=== PATIENT | female | born 1930 | race Two or more races ===

== ENCOUNTER 2019-10-27 23:57 | Inpatient (IN) | payer OTHER ==
[~2019-10-27] VITALS: Ht 162.6 cm; Wt 45.5 kg
[~2019-10-27 23:57] MED LIST: ERGO1CAP6 PO; LISI-648 PO
[2019-10-28] VITALS (12 sets, daily range): BP systolic 125–165; BP diastolic 52–74
--- NOTE | 2019-10-28 00:50 | NUR ---
Direct Admit Note SEVENASUNCION admitted to Telemetry/MS unit as a direct admit for [facility] ([place] Patient oriented to Carlos Enrique Cook, primary RN, unit, room, bed, and unit policies regarding patient care and visiting hours. Patient is currently A/Ox2. Patient is restless and continues to try to get out of bed. Abreu has been [place] prior to [place] [facility] Patient weighed by bedscale and encouraged to call if they need something. All questions and concerns addressed, patient verbalized understanding. MD notified of patients arrival and admit orders received.
[2019-10-28] MEDS ORDERED: PANTOPRAZOLE 40 MG/10 ML VIAL INJ IV ONE (01:15)
--- NOTE | 2019-10-28 01:45 | NUR ---
Patient is restless and frequently tries to get out of bed. Patient also tries to pull out her Abreu. Requested sitter for the patient. Charge nurse notified.
--- NOTE | 2019-10-28 02:20 | NUR ---
Sitter is bedside with the patient. Patient continues to be restless.
[2019-10-28 03:06] LABS: Basophils # (auto) 0 10 ^3/uL (0-0.2); Eosinophils # (auto) 0 10 ^3/uL (0-0.8); Eosinophils % (auto) 0.1 % (0.0-7.0); Lymphocytes # (auto) 0.7 10 ^3/uL (0.4-5.4); Monocytes # (auto) 0.5 10 ^3/uL (0-1.3); Neutrophils # (auto) 3.8 10 ^3/uL (1.6-8.6)
[2019-10-28 03:08] LABS: Basophils % (auto) 0.5 % (0.0-2.0); Hematocrit 21.7 % (36.0-46.0); Lymphocytes % (auto) 14.8 % (10.0-50.0); Mean Corpuscular Hemoglobin 26.4 pg (28.0-32.0); Mean Corpuscular Hgb Conc. 32.1 g/dL (32.0-36.0); Mean Corpuscular Volume 82.3 fL (80.0-100.0); Monocytes % (auto) 10.4 % (0.0-12.0); Neutrophils % (auto) 74.2 % (37.0-80.0); Platelet Count (auto) 237 10^3/uL (140-450); Red Blood Cells 2.64 10^6/uL (4.0-5.20); Red Cell Distribution Width 18.2 % (11.8-14.3); White Blood Cell 5.1 10^3/uL (4.4-10.8)
--- NOTE | 2019-10-28 03:10 | NUR ---
CRITICAL LAB Critical lab for low hemoglobin of 7.0 has been received. Hospitalist has been paged.
--- NOTE | 2019-10-28 03:15 | NUR ---
HOSPITALIST [facility] Hospitalist Manjinder has been notified about the patient's 7.0 Hemoglobin. No new orders have been received.
[2019-10-28 03:21] LABS: INR 0.98 (0.9-1.15); Partial Thromboplastin Time 25.8 sec (23.64-32.05)
[2019-10-28 03:23] LABS: Calcium 8.8 mg/dL (8.5-10.1); Potassium 3.8 mmol/L (3.5-5.1)
[2019-10-28 03:28] LABS: Bilirubin, Total 0.5 mg/dL (0.2-1.0); Total Protein 7.3 g/dL (6.4-8.2)
[2019-10-28 03:40] LABS: Urine Bacteria FEW /hpf (None Seen); Urine Blood Negative /uL (Negative); Urine WBC 2 /hpf (0 - 5)
[2019-10-28] MEDS ORDERED: MORPHINE SULF INJ 2 MG/ML SYRINGE 1ML IV PRN (03:45)
[2019-10-28] MEDS ORDERED: ONDANSETRON HCL 4 MG/2 ML VIAL IV PRN (03:45)
[2019-10-28] MEDS: PANTOPRAZOLE 40mg/50ML NS AE 50 ML IV SCH ×2 (03:45→09:19)
[2019-10-28] MEDS ORDERED: NITROGLYCERIN 0.4 MG SL TAB SL PRN (03:45)
[2019-10-28] MEDS: D5W/SOD CHLO 0.9% 1,000 ML IV SCH ×2 (03:45→17:05)
[2019-10-28] MEDS ORDERED: GOLYTELY 4L KIT PO ONE (10:00)
[2019-10-28 10:22] LABS: Hematocrit 20.6 % (36.0-46.0)
[2019-10-28 10:25] LABS: Hemoglobin 6.6 g/dL (12.2-16.2)
--- NOTE | 2019-10-28 10:30 | NUR ---
CALLED Heri KESSLER REGARDING CRITICAL LAB OF 6.6. INFORMED THERE IS ALREADY AN ORDER PRESENT FOR 1 UNIT OF BLOOD TO TRANSFUSE PER Heri PALMA.
[2019-10-28] MEDS: cefTRIAXone 1GM/50ML D5W 50 ML IV SCH (10:39)
--- NOTE | 2019-10-28 10:58 | NUR ---
IV insertion IV access obtained, via clean sterile technique by inserting 20 gauge catheter at R WRIST after 1 attempt(s). IV secured properly. No trauma to site. Patient tolerated well. NOTE:
--- NOTE | 2019-10-28 11:10 | NUR ---
SPOKE WITH Heri KESSLER INFORMED OF PATIENT BLOOD REQUIRING 3 HOURS TO ARRIVE TO HOSPITAL. STATED TO ORDER ANOTHER UNIT OF BLOOD TO TRANSFUSE.
--- NOTE | 2019-10-28 11:15 | NUR ---
PER BLOOD BANK, BLOOD WILL NOT BE HERE FOR 3 HOURS DUE TO SPECIAL ORDER FROM [facility].
--- NOTE | 2019-10-28 13:20 | NUR ---
LATE ENTRY: RECIEVED TELEPHONE CONSENT FROM SON DAVI WITH NURSE KAREN WITNESS.
--- NOTE | 2019-10-28 14:17 | NUR ---
CALLED BLOOD BANK. AWAITING BLOOD.
--- NOTE | 2019-10-28 19:07 | NUR ---
PAGED NURSING PROGRAM COORDINATOR HOSPITALIST REGARDING PATIENT FOUND IN ROOM WITH HANDS COVERED IN BLOOD. PATIENTS HEART RATE IN THE 170'S BLOOD PRESSURE 133/74, 02 SATURATIONS AT 98%. PER Heri GARCIA GIVE 1L OF LACTATED RINGER BOLUS. WILL FOLLOW THROUGH.
[2019-10-28] MEDS ORDERED: LACTATED RINGER'S 1,000 ML IV ONE (19:15)
[2019-10-29] VITALS (7 sets, daily range): BP systolic 100–139; BP diastolic 47–78
--- NOTE | 2019-10-29 00:45 | NUR ---
NG TUBE ATTEMPT Attempted to place an NG tube but was unable to advance. Charge nurse notified. Will continue to encourage the patient to drink the Golytely.
--- NOTE | 2019-10-29 04:59 | NUR ---
NG TUBE ATTEMPT Attempted to place NG tube in the patient but was unsuccessful. The patient was uncooperative and continued to move while advancing the tube. Patient pulled out tube prior to completion of tube advancement.
[2019-10-29 06:22] LABS: Basophils # (auto) 0 10 ^3/uL (0-0.2); Basophils % (auto) 0.4 % (0.0-2.0); Eosinophils # (auto) 0 10 ^3/uL (0-0.8); Eosinophils % (auto) 0.3 % (0.0-7.0); Hematocrit 33.5 % (36.0-46.0); Hemoglobin 11.2 g/dL (12.2-16.2); Lymphocytes # (auto) 0.6 10 ^3/uL (0.4-5.4); Lymphocytes % (auto) 9.6 % (10.0-50.0); Mean Corpuscular Hemoglobin 27.8 pg (28.0-32.0); Mean Corpuscular Hgb Conc. 33.4 g/dL (32.0-36.0); Mean Corpuscular Volume 83.3 fL (80.0-100.0); Monocytes # (auto) 0.5 10 ^3/uL (0-1.3); Monocytes % (auto) 8.7 % (0.0-12.0); Neutrophils # (auto) 4.7 10 ^3/uL (1.6-8.6); Nucleated Red Blood Cells % 0.1 %; Platelet Count (auto) 199 10^3/uL (140-450); Red Blood Cells 4.03 10^6/uL (4.0-5.20); Red Cell Distribution Width 16.7 % (11.8-14.3); White Blood Cell 5.8 10^3/uL (4.4-10.8)
[2019-10-29] MEDS: D5W/SOD CHLO 0.9% 1,000 ML IV SCH ×2 (06:25→15:13)
--- NOTE | 2019-10-29 06:38 | NUR ---
Patient drank up approximately 2/3rd of the golytely. Attempted to place NT tube but was unsuccessful. The patient is passing clear red/dark brown watery fluid. No solid stool present.
[2019-10-29 06:42] LABS: BUN/Creatinine Ratio 9.7
[2019-10-29] MEDS ORDERED: diphenhdrAMINE HCL 50 MG/1 ML VL ONE (08:47)
[2019-10-29] MEDS ORDERED: SODIUM CHLORIDE LOCK 10 ML ONE (08:47)
--- NOTE | 2019-10-29 10:00 | NUR ---
INFORMED DR PALMA THAT PATIENT WAS UNABLE TO DRINK ALL OF GOLYTELY AND NOC NURSE UNABLE TO PLACE NG TUBE. ORDERS RECEIVED.
--- NOTE | 2019-10-29 10:23 | NUR ---
DR Brad KESSLER BEDSIDE WITH PATIENT
[2019-10-29] MEDS: cefTRIAXone 1GM/50ML D5W 50 ML IV SCH (10:26)
--- NOTE | 2019-10-29 11:15 | NUR ---
INFORMED PREOP THAT PATIENT IS REFUSING TAP WATER ENEMAS. PREOP SAID TO BRING HER DOWN ANYWAY
--- NOTE | 2019-10-29 11:20 | NUR ---
PATIENT OFF FLOOR FOR COLONOSCOPY
[2019-10-29] MEDS: fentaNYL CITRATE 100 MCG/2 ML VL ONE ×3 (12:04→12:20)
[2019-10-29] MEDS: MIDAZOLAM HCL 5 MG/ML-1ML VIAL ONE ×2 (12:04→12:11)
--- NOTE | 2019-10-29 13:25 | NUR ---
PATIENT BACK TO ROOM FROM COLONOSCOPY. VS 105/71, 100%, 17, 49, 98.3. NO COMPLAINTS OF PAIN OR DISCOMFORT. WILL CONTINUE TO MONITOR Q1H AND PRN. SITTER BEDSIDE
--- NOTE | 2019-10-29 16:45 | NUR ---
PATIENT PULLED OUT IV. PATIENT REFUSING NEW PLACEMENT OF IV AT THIS TIME.
--- NOTE | 2019-10-29 19:47 | NUR ---
RECEIVED REPORT FROM DAY RN POC REVIEWED
--- NOTE | 2019-10-29 22:00 | NUR ---
PT ALERT WITH PERIODS OF CONFUSION, WILL ATTEMPT IV, PT EARLIER PULLED OUT HER IV AND REFUSED THE DAY NURSE TO RESTART IV
--- NOTE | 2019-10-29 23:15 | NUR ---
PT REFUSED TO HAVE IV RESTARTED, REORIENTED PT TO POC, PT HAS PERIODS OF CONFUSION, SITTER AT BEDSIDE FOR PTS SAFETY
--- NOTE | 2019-10-30 05:32 | NUR ---
PT CONTINUE TO REFUSE TO HAVE IV PLACED, REORIENTED PT TO POC
[2019-10-30 05:54] VITALS: BP 128/61
--- NOTE | 2019-10-30 05:55 | NUR ---
PTS TEMP 99.2, COOLING MEASURES INITIATED
--- NOTE | 2019-10-30 06:49 | NUR ---
REPORT GIVEN TO AM NURSE POC REVIEWED
[2019-10-30] MEDS: cefTRIAXone 1GM/50ML D5W 50 ML IV SCH (09:00)
[2019-10-30] MEDS: D5W/SOD CHLO 0.9% 1,000 ML IV SCH (09:05)
[2019-10-30 09:24] LABS: Hematocrit 31.7 % (36.0-46.0); Hemoglobin 10.2 g/dL (12.2-16.2)
[2019-10-30] MEDS ORDERED: POTASSIUM CHL 20 Meq TABLET PO ONE (10:00)
--- NOTE | 2019-10-30 12:52 | NUR ---
PCP unknown Unable to find any PCP listed for MD. This nurse called her family and they were not sure either. They looked for paperwork and the last thing they found with a doctor's name on it listed Dr. Antione Nichols/Juan. This nurse searched for that doctor and found a Dr. Martinez in [place], he is a Radiology Oncologist. Unknown who her PCP is. The family (grandzain, Ty) stated she hadn't gone to the doctor in a long time because she refuses to go. Will note on the discharge paperwork for her to follow up with her PCP outpatient in one week.
--- NOTE | 2019-10-30 14:49 | NUR ---
PCP/ASKED PATIENT ASKED THE PATIENT IF SHE KNOWS WHO HER PCP IS. SHE SAID SHE HASN'T BEEN TO THE DOCTOR IN A LONG TIME AND DOESN'T KNOW WHO IT WOULD BE.
--- NOTE | 2019-10-30 15:36 | NUR ---
Discharge Patient previously removed her IV and had no IV access at time of discharge. MD is aware. Removed ID bands. Removed telemetry and returned to ICU per hospital protocol. Took patient out in wheelchair to private vehicle where family picked her up. Went over paperwork with family member and gave them the prescription for Iron and Annusol. Answered all questions and assisted patient into private vehicle. Addendum: 10/30/19 at 1623 by PEYTON PEREZ RN Also contacted patient's family prior to discharge and they stated she does not have a Abreu catheter at home. This nurse removed the Abreu catheter prior to discharge.
== END 2019-10-30 15:35 | disposition home or self-care (01) | DRG 378 ==
LOC: TELE-CENTR 10-28 01:07
PROVIDERS: ADMIT Nurse Practitioner; ATTEND Family Medicine
PROC: 30233N1 Transfusion of Nonautologous Red Blood Cells into Peripheral Vein, Percutaneous Approach (ICD-10-PCS; principal; 2019-10-28)
PROC: 0DJD8ZZ Inspection of Lower Intestinal Tract, Via Natural or Artificial Opening Endoscopic (ICD-10-PCS; 2019-10-29)
DX: K57.31 Diverticulosis of large intestine without perforation or abscess with bleeding (principal); E44.0 Moderate protein-calorie malnutrition; N39.0 Urinary tract infection, site not specified; Z68.1 Body mass index [BMI] 19.9 or less, adult; D62 Acute posthemorrhagic anemia; F03.90 Unspecified dementia, unspecified severity, without behavioral disturbance, psychotic disturbance, mood disturbance, and anxiety; K64.8 Other hemorrhoids; Z87.11 Personal history of peptic ulcer disease; Z90.49 Acquired absence of other specified parts of digestive tract; Z79.899 Other long term (current) drug therapy
CPT/HCPCS: 36415; 45378; 71045; 74176; 80048; 80053; 81001; 84132; 84484; 85014; 85018; 85025; 85610; 85730; 86850; 86870; 86900; 86901; 86920; 86922; 87081; A4565; C9113; G0378; J0696; J2250

== ENCOUNTER 2020-05-29 14:53 | Inpatient (IN) | payer OTHER ==
[~2020-05-29] VITALS: Ht 160 cm; Wt 46.4 kg
--- NOTE | 2020-05-30 20:25 | NUR ---
REPORT RECEIVED REPORT FROM NURSE COFFMAN FROM [facility]. PATIENT HAS ORDERS TO TRANSFER TO [facility] DIRECT ADMIT.
--- NOTE | 2020-05-30 22:52 | NUR ---
ARRIVAL PATIENT ARRIVED @ 2247 VIA GURNEY WITH [facility] STAFF. ALL BELONGINGS WITH PATIENT.
[2020-05-30] MEDS ORDERED: CHOL20007 PO (23:08)
[2020-05-30] MEDS ORDERED: FERR-7 PO (23:08)
[2020-05-30] MEDS ORDERED: HYDR2.5C39 TOP (23:09)
[2020-05-30 23:23] VITALS: BP 146/74
[2020-05-30 23:27] VITALS: BP 146/74
[2020-05-30] MEDS ORDERED: OMEG100062 PO (23:41)
--- NOTE | 2020-05-30 23:55 | NUR ---
PATIENT IS A NEW ADMIT, [facility] HOSPITALIST FOR ORDERS Addendum: 05/31/20 at 0045 by SHAILA DE LA PAZ RN RN ADMISSION PACKET GIVEN TO HOSPITALIST AWAITING ORDERS
--- NOTE | 2020-05-31 00:45 | NUR ---
UA AND MRSA SWAB SENT TO LAB
[2020-05-31 01:31] LABS: Urine Bacteria FEW /hpf (None Seen); Urine Blood 1+ /uL (Negative); Urine Mucus FEW (None Seen); Urine Specific Gravity 1.011 (1.001-1.035); Urine WBC 3 /hpf (0 - 5)
[2020-05-31 02:00] LABS: Basophils # (auto) 0 10 ^3/uL (0-0.2); Basophils % (auto) 0.1 % (0.0-2.0); Eosinophils # (auto) 0 10 ^3/uL (0-0.8); Eosinophils % (auto) 0.2 % (0.0-7.0); Hematocrit 33.1 % (36.0-46.0); Hemoglobin 10.6 g/dL (12.2-16.2); Lymphocytes # (auto) 0.6 10 ^3/uL (0.4-5.4); Lymphocytes % (auto) 15.7 % (10.0-50.0); Mean Corpuscular Hgb Conc. 32.2 g/dL (32.0-36.0); Mean Corpuscular Volume 89.9 fL (80.0-100.0); Monocytes # (auto) 0.4 10 ^3/uL (0-1.3); Monocytes % (auto) 9.9 % (0.0-12.0); Neutrophils # (auto) 2.9 10 ^3/uL (1.6-8.6); Neutrophils % (auto) 74.1 % (37.0-80.0); Nucleated Red Blood Cells % 0.3 %; Platelet Count (auto) 177 10^3/uL (140-450); Red Blood Cells 3.68 10^6/uL (4.0-5.20); White Blood Cell 3.9 10^3/uL (4.4-10.8)
[2020-05-31 02:18] LABS: INR 0.97 (0.9-1.15); Partial Thromboplastin Time 33.6 sec (23.0-31.2); Potassium 3.6 mmol/L (3.5-5.1)
[2020-05-31 02:20] LABS: Albumin 2.2 g/dL (3.4-5.0); BUN/Creatinine Ratio 15.5; Calcium 8.4 mg/dL (8.5-10.1)
[2020-05-31 02:35] LABS: Bilirubin, Total 0.4 mg/dL (0.2-1.0); Total Protein 6.4 g/dL (6.4-8.2)
[2020-05-31 05:00] VITALS: BP 149/66
--- NOTE | 2020-05-31 05:00 | NUR ---
WOUNDCARE PICTURES TAKEN OF OPEN WOUND TO SACRUM AND RIGHT GLUTEAL WOUND. OPTIFORM DRESSING APPLIED. WOUND AND DIETARY CONSULT SUBMITTED
[2020-05-31] MEDS ORDERED: ONDANSETRON HCL 4 MG/2 ML VIAL IV PRN (06:30)
[2020-05-31] MEDS ORDERED: NITROGLYCERIN 0.4 MG SL TAB SL PRN (06:30)
[2020-05-31] MEDS ORDERED: ACETAMINOPHEN 325 MG TAB PO PRN (06:30)
[2020-05-31] MEDS ORDERED: MORPHINE SULF INJ 2 MG/ML SYRINGE 1ML IV PRN (06:30)
--- NOTE | 2020-05-31 06:45 | NUR ---
HOSPITALIST YINKA AT BEDSIDE TO EXAMINE PATIENT.
--- NOTE | 2020-05-31 07:30 | NUR ---
Opening Shift Note Assumed care of patient, awake and alert to self only. Noted respirations to be even and unlabored. No S/S of distress/SOB or pain. Bed is low, locked with 2x side rails up. Call light is within reach. Bed alarm is on for safety. Instructed on POC and to call for assist PRN, will continue to monitor for changes Q1hr and PRN.
[2020-05-31] MEDS: FERROUS SULFATE 325 MG TAB PO SCH ×2 (08:50→18:11)
[2020-05-31] MEDS: FAMOTIDINE 20 MG TAB PO SCH (08:51)
[2020-05-31] MEDS: ENOXAPARIN SOD 40 MG/0.4 ML SYRINGE SC SCH (08:51)
[2020-05-31] MEDS: LISINOPRIL 10 MG TAB PO SCH (08:51)
[2020-05-31 09:00] VITALS: BP 165/57
[2020-05-31] MEDS ORDERED: cefTRIAXone 1GM/50ML D5W 50 ML IV SCH (09:00)
--- NOTE | 2020-05-31 10:00 | NUR ---
WOUND CARE NOTE: IN TO SEE PATIENT AT THIS TIME PER WOUND CARE CONSULT REQUEST. PATIENT NOTED UPON ADMIT TO HAVE MULTIPLE WOUNDS TO SACRUM/BUTTOCKS. BEDSIDE NURSE PHOTOGRAPHED WOUNDS AT THAT TIME FOR REFERENCE. WOUND CONSULT ORDERED. PATIENT ADMITTED TO [facility] WITH DIAGNOSIS OF ALOC, HYPOKALEMIA, BRADYCARDIA. CURRENT ZAINA SCORE IS 16. PATIENT NOTED TO BE VERY THIN, WEIGHING ONLY 44.5 KG., WITH PROMINENT BONY PROMINENCES. SPECIALTY AIR MATTRESS ORDERED AT THIS TIME. PATIENT TO BE PLACED, PENDING DELIVERY BY SOFIA RAMOS. PATIENT IS ABLE TO ASSIST WITH HER TURNING/REPOSITIONING, BUT D/T HER CONFUSION, DOES NOT FOLLOW COMMANDS. SHE IS NOTED TO HAVE MASD WITH INTERTRIGINOUS RASH TO SACRUM, BUTTOCKS, PERIENEUM, PROBABLY FROM DIAPER USAGE. SHE HAS MANY FULL THICKNESS PRESSURE INJURIES, INCLUDING COCCYX, RIGHT UPPER AND LOWER BUTTOCKS. ALL WOUND STATS CAN BE FOUND WITHIN WOUND ASSESSMENT, LINKED TO THIS NOTE. APPLIED ZGUARD, OPTIFOAM GENTLE DRESSINGS TO OPEN WOUNDS. PATIENT TOLERATED DRESSING CHANGES WELL, NOTING NO PAIN OR DISCOMFORT FROM PATIENT. NEW WOUND PHOTOS TAKEN AT THIS TIME FOR REFERENCE. SKIN/WOUND CARE PLAN IMPLEMENTED. RECOMMEND: FREQUENT TURN SCHEDULE Q 2 HOURS, PRN CONDITION PERMITS, WITH PRESSURE REDISTRIBUTION USING PILLOWS/WEDGES, SPECIALTY AIR MATTRESS, DIETARY CONSULT, BID/PRN APPLICATION WITH ZGUARD TO OPEN WOUNDS AND OPTIFOAM GENTLE DRESSINGS, SKIN/WOUND CARE PLAN, CONTINUED MONITORING BY WOUND CARE TEAM. Addendum: 05/31/20 at 1405 by Rupa Ellsworth RN Amended: Links added.
--- NOTE | 2020-05-31 12:01 | NUR ---
Nutrition Assessment/Consult Notes Please refer to link for full assessment notes. Est Energy needs: 4759-6279 kcals (20-23 kcal/kgIBW of 52kg) Est Protein needs: 52-57 gms/day (1.0-1.1 gm/kgIBW of 52kg) Will continue to monitor and reassess prn. Addendum: 05/31/20 at [address] Amended: Links added.
--- NOTE | 2020-05-31 12:05 | NUR ---
Recommendation: Consider a daily MVI with 500mg VitC BID for wound healing
[2020-05-31 12:27] VITALS: BP 134/75
[2020-05-31] MEDS ORDERED: hydrALAZINE HCL 20 MG/ML VL IV PRN (14:00)
--- NOTE | 2020-05-31 15:30 | NUR ---
INHOUSE COVID SWAB Walked to lab by special investigation unit investigator, Maddy.
[2020-05-31 16:50] VITALS: BP 128/90
--- NOTE | 2020-05-31 19:05 | NUR ---
Opening Shift Note Assumed care of patient from day shift RN patient awake, alert and oriented x4. No S/S of distress/SOB or pain. Instructed on POC and to call for assist PRN, safety measures in place bed in lowest position call light with in reach side rails up x2. will continue to monitor for changes Q1hr and PRN.
[2020-05-31 22:00] VITALS: BP 131/58
[2020-06-01 05:14] VITALS: BP 156/93
--- NOTE | 2020-06-01 06:30 | NUR ---
IV removal Patient pulled out IV. cannula intact. IV insertion IV access obtained, via clean sterile technique by inserting 22 gauge catheter at left arm after 1 attempt. IV secured properly. No trauma to site. Patient tolerated procedure well.
[2020-06-01 06:55] LABS: Basophils # (auto) 0 10 ^3/uL (0-0.2); Basophils % (auto) 0.2 % (0.0-2.0); Eosinophils # (auto) 0 10 ^3/uL (0-0.8); Eosinophils % (auto) 0.2 % (0.0-7.0); Hematocrit 34.7 % (36.0-46.0); Hemoglobin 11.1 g/dL (12.2-16.2); Lymphocytes # (auto) 0.6 10 ^3/uL (0.4-5.4); Lymphocytes % (auto) 24.1 % (10.0-50.0); Mean Corpuscular Hemoglobin 28.9 pg (28.0-32.0); Mean Corpuscular Volume 90.3 fL (80.0-100.0); Monocytes # (auto) 0.3 10 ^3/uL (0-1.3); Monocytes % (auto) 10.1 % (0.0-12.0); Neutrophils # (auto) 1.7 10 ^3/uL (1.6-8.6); Neutrophils % (auto) 65.4 % (37.0-80.0); Nucleated Red Blood Cells % 0.2 %; Platelet Count (auto) 162 10^3/uL (140-450); Red Blood Cells 3.84 10^6/uL (4.0-5.20); Red Cell Distribution Width 15.6 % (11.8-14.3); White Blood Cell 2.6 10^3/uL (4.4-10.8)
[2020-06-01 07:14] LABS: Albumin 2.3 g/dL (3.4-5.0); Calcium 8.6 mg/dL (8.5-10.1); Potassium 3.4 mmol/L (3.5-5.1)
[2020-06-01 07:16] LABS: BUN/Creatinine Ratio 19.7
[2020-06-01 07:27] LABS: Bilirubin, Total 0.3 mg/dL (0.2-1.0); Total Protein 6.4 g/dL (6.4-8.2)
--- NOTE | 2020-06-01 07:40 | NUR ---
IV removed Patient pulled out IV catheter. 22g catheter fully intact. Attempting to reinsert IV. Patient very agitated and refusing. Will try again at a later time.
[2020-06-01] MEDS: FERROUS SULFATE 325 MG TAB PO SCH ×2 (08:35→18:14)
[2020-06-01] MEDS: ENOXAPARIN SOD 40 MG/0.4 ML SYRINGE SC SCH (08:35)
[2020-06-01] MEDS: LISINOPRIL 10 MG TAB PO SCH (08:35)
[2020-06-01] MEDS: FAMOTIDINE 20 MG TAB PO SCH (08:35)
[2020-06-01 09:00] VITALS: BP 148/81
--- NOTE | 2020-06-01 09:34 | NUR ---
Sandra Fair at bedside Informed MD on current labs. Received new orders for potassium replacement. MD aware that patient is refusing IV insertion. MD to switch IV antibiotic to PO.
[2020-06-01] MEDS ORDERED: POTASSIUM EFFERVESENT TAB 25 MEQ PO ONE (09:45)
[2020-06-01] MEDS ORDERED: levoFLOXacin 250 MG TAB PO SCH (10:00)
[2020-06-01 13:00] VITALS: BP 169/91
[2020-06-01] MEDS ORDERED: cloNIDine HCL 0.1 MG TAB PO PRN (14:30)
--- NOTE | 2020-06-01 14:43 | NUR ---
assessment re: consult for living situation Patient is a 89 year old female. Per patients azin Carr prior to admission patient lived home with him and family and was independent. Per Bruno patient has a fww that she does not use, patient has a cane that she will use for home use. Per Bruno patient had 2 falls this weekend on Friday and Friday. Per Bruno after the second fall patient was not acting the same so he called 911. I informed Bruno I will continue to monitor and follow up as appropriate for any post discharge needs. Bruno verbalized understanding. Addendum: 06/01/20 at 1451 by Mignon LOW Amended: Links added.
[2020-06-01 17:00] VITALS: BP 150/74
--- NOTE | 2020-06-01 18:41 | NUR ---
IV insertion IV access obtained, via clean sterile technique by inserting a 22 gauge catheter at the right forearm after 2 attempt(s). IV secured properly. No trauma to site. Patient tolerated well.
--- NOTE | 2020-06-01 19:05 | NUR ---
Opening Shift Note Assumed care of patient from day shift RN, patient awake, alert and oriented x4. No S/S of distress/SOB or pain. Instructed on POC and to call for assist PRN, safety measures in place call light in reach, bed in lowest position, side rails up x2. will continue to monitor for changes Q1hr and PRN.
[2020-06-01 21:30] VITALS: BP 124/62
[2020-06-02 04:59] VITALS: BP 128/66
--- NOTE | 2020-06-02 07:40 | NUR ---
Opening Shift Note Assumed care of patient, awake and talkative but confused. Respirations are even and non labored on room air. Bed is in the lowest and locked position with side rails up x 2 and sitter at bedside. No S/S of distress/SOB or pain. Unable to instruct on POC but will continue to monitor for changes Q1hr and PRN.
[2020-06-02 09:00] VITALS: BP 131/46
[2020-06-02] MEDS: ENOXAPARIN SOD 40 MG/0.4 ML SYRINGE SC SCH (10:30)
[2020-06-02] MEDS: FERROUS SULFATE 325 MG TAB PO SCH ×2 (10:30→19:05)
[2020-06-02] MEDS: FAMOTIDINE 20 MG TAB PO SCH (10:30)
[2020-06-02] MEDS: LISINOPRIL 10 MG TAB PO SCH (10:30)
--- NOTE | 2020-06-02 10:58 | NUR ---
Dr. Eid at bedside
[2020-06-02] MEDS ORDERED: cefTRIAXone 1GM/50ML D5W 50 ML IV ONE (11:15)
[2020-06-02 11:50] LABS: Calcium 8.3 mg/dL (8.5-10.1); Potassium 3.1 mmol/L (3.5-5.1)
[2020-06-02 11:53] LABS: BUN/Creatinine Ratio 20.6; Magnesium 2.2 mg/dL (1.6-2.6)
[2020-06-02 11:57] LABS: Folate (Folic Acid) 7.19 ng/mL (5.38-24)
[2020-06-02 13:00] VITALS: BP 124/63
--- NOTE | 2020-06-02 16:16 | NUR ---
D/C Planning Regarding social service consult for home health physical therapy and wound care. Order was reviewed and approved by [facility]. Faxed clinical information to [facility] and [facility]. Per Carol with [facility] patient has been accepted and service to start within 24-48hrs upon d/c day.
[2020-06-02] MEDS ORDERED: LEVOTHYROXINE SODIUM 100 MCG/5 ML INJ IV ONE (16:30)
[2020-06-02 16:53] VITALS: BP 110/48
--- NOTE | 2020-06-02 18:09 | NUR ---
Abreu catheter D/C and insertion Abreu catheter found lying on the bed. Patient was not in any distress and no report of pain. Called to notify doctor, order obtained from Dr. Eid. Abreu catheter 16 gauge Australian inserted with clean sterile technique. Patient tolerated well.
[2020-06-02 21:35] VITALS: BP 139/81
--- NOTE | 2020-06-02 22:20 | NUR ---
ASSUMED PATIENT CARE- NOC SHIFT RECEIVED REPORT FROM OCTOBER RN. PATIENT IS IN BED, BED IS LOCKED AT LOWEST POSITION, BED RAILS UP X2 AND HEAD OF BED IS UP >30 DEGREES. NURSE PACKAGE WORKER STAYS AT BEDSIDE FOR SAFETY PRECAUTIONS. NO S/SX OF DISTRESS, SOB OR PAIN. PATIENT IS CONFUSED AND IS TALKATIVE. WILL CONTINUE TO MONITOR Q1H AND PRN.
--- NOTE | 2020-06-03 04:42 | NUR ---
WOUND CARE PROVIDED ORDERED.
[2020-06-03 05:18] VITALS: BP 140/68
--- NOTE | 2020-06-03 07:28 | NUR ---
ENDORSED PATIENT CARE TO DAY SHIFT NURSE DORIS BARBOZA PATIENT IS COMFORTABLE IN BED. NO S/SX OF DISTRESS, SOB OR PAIN. NURSE STEREOTYPE MOLDER STAYS AT BEDSIDE FOR SAFETY PRECAUTIONS.
--- NOTE | 2020-06-03 08:00 | NUR ---
Opening Shift Note Assumed care of patient, awake and alert to self and place. No S/S of distress/SOB or pain. Instructed on POC and to call for assist PRN, will continue to monitor for changes Q1hr and PRN. Sitter at bedside for safety.
[2020-06-03] MEDS: FERROUS SULFATE 325 MG TAB PO SCH (08:23)
[2020-06-03 09:00] VITALS: BP 120/64
[2020-06-03] MEDS ORDERED: cefTRIAXone 1GM/50ML D5W 50 ML IV SCH (09:00)
[2020-06-03] MEDS: FAMOTIDINE 20 MG TAB PO SCH (09:51)
[2020-06-03] MEDS: ENOXAPARIN SOD 40 MG/0.4 ML SYRINGE SC SCH (09:51)
[2020-06-03] MEDS: LISINOPRIL 10 MG TAB PO SCH (09:52)
[2020-06-03] MEDS ORDERED: LEVOTHYROXINE SODIUM 100 MCG/5 ML INJ IV SCH (10:00)
--- NOTE | 2020-06-03 10:15 | NUR ---
Hospitalist Rounding Hospitalist rounded on patient.
--- NOTE | 2020-06-03 12:42 | NUR ---
Nutrition Followup Note Wt 46.4kg Pt was sleeping with sitter at bedside at time of rounds. Sitter reports pt ate breakfast okay. Pt is with a good appetite aeb pt with 82% of po intake x 3days per Rn note Est Energy needs: 2501-7926 kcals (20-23 kcal/kgIBW of 52kg) Est Protein needs: 52-57 gms/day (1.0-1.1 gm/kgIBW of 52kg) Will continue to monitor and reassess prn. Labs: Alb 2.3L BM: Pt with 6 BMs 06/03 per Rn note Skin: BS 16 mod risk, full details in child care development specialist note PES: 1) Underweight r/t pt energy intake is less than energy needs aeb BMI of 17.4 kg/m2 2) Altered nutrition rleated lab values r/t current medical condition aeb hypoglycemia, hypocalcemia, hypoalbuminemia Comments: Will continue to monitor PO status, skin status, pertinent labs and weight trends. Will f/u in 3-5 days 1) Continue to closely monitor pt PO intake to meet at least 75% of meals 2) If albumin continues trending down, consider Prostat 1 pkt BID 3) Continue current plan of care Expected Outcomes/Goals: Pt appetite to meet at least 75% PO intake Pt labs to improve
[2020-06-03 13:00] VITALS: BP 124/65
--- NOTE | 2020-06-03 15:20 | NUR ---
Wound Care Discharge pictures taken and wound care done as ordered.
--- NOTE | 2020-06-03 15:38 | NUR ---
[facility] social media executive will notify [facility] that patient has discharge orders for today. Patient is okay for discharge.
--- NOTE | 2020-06-03 15:40 | NUR ---
Discharge order Spoke with son Bruno on the phone, he is aware patient is discharged and his son Martín will pick her up at 1630.
--- NOTE | 2020-06-03 16:55 | NUR ---
Prescription [place] prescription [place] [address] [phone]. Lisinopril 10mg PO qam; Synthroid 100mg PO qam; and Bactrim regular strength 1 tab BID x 5days.
--- NOTE | 2020-06-03 17:00 | NUR ---
Discharge instructions given as ordered to son on phone. Encourage to follow up with PMD as instructed. All questions and concerns addressed. Patient's son verbalized understanding. Medication reconciliation form completed and copy given to patient. IV removed with catheter intact, pressure dressing applied and chaidez catheter removed. Telemetry unit returned to ICU. Patient taken to vehicle via wheelchair with all personal belongings, accompanied by staff. No distress noted at time of departure.
== END 2020-06-03 17:00 | disposition home health service (06) | DRG 71 ==
LOC: TELE-CENTR 05-30 23:04
PROVIDERS: ADMIT Hospitalist; ATTEND Internal Medicine
DX: G93.41 Metabolic encephalopathy (principal); N39.0 Urinary tract infection, site not specified; I50.22 Chronic systolic (congestive) heart failure; D70.9 Neutropenia, unspecified; D64.9 Anemia, unspecified; F03.90 Unspecified dementia, unspecified severity, without behavioral disturbance, psychotic disturbance, mood disturbance, and anxiety; Z20.828 Contact with and (suspected) exposure to other viral communicable diseases; E03.9 Hypothyroidism, unspecified; I11.0 Hypertensive heart disease with heart failure; I48.91 Unspecified atrial fibrillation; L89.90 Pressure ulcer of unspecified site, unspecified stage; Z74.01 Bed confinement status; Z87.11 Personal history of peptic ulcer disease; Z90.49 Acquired absence of other specified parts of digestive tract
CPT/HCPCS: 36415; 71045; 80048; 80053; 81001; 82607; 82746; 83036; 83605; 83735; 84439; 84443; 84484; 85025; 85610; 85730; 87040; 87081; 87086; 87088; 87186; 93005; 93306; G0378; J0696; J3490

== ENCOUNTER 2020-07-08 23:30 | Emergency (ER) | payer OTHER ==
[~2020-07-08] VITALS: Ht 149.9 cm; Wt 49.9 kg
[~2020-07-08 23:30] MED LIST changes: -LISI-648 PO; +OMEG100062 PO
[2020-07-09 05:05] LABS: Basophils # (auto) 0 10 ^3/uL (0-0.2); Eosinophils # (auto) 0 10 ^3/uL (0-0.8); Eosinophils % (auto) 0.3 % (0.0-7.0); Hematocrit 29.8 % (36.0-46.0); Hemoglobin 9.9 g/dL (12.2-16.2); Lymphocytes # (auto) 0.7 10 ^3/uL (0.4-5.4); Lymphocytes % (auto) 21.4 % (10.0-50.0); Mean Corpuscular Hemoglobin 30.1 pg (28.0-32.0); Mean Corpuscular Hgb Conc. 33.2 g/dL (32.0-36.0); Mean Corpuscular Volume 90.5 fL (80.0-100.0); Monocytes # (auto) 0.2 10 ^3/uL (0-1.3); Monocytes % (auto) 7.7 % (0.0-12.0); Neutrophils # (auto) 2.2 10 ^3/uL (1.6-8.6); Neutrophils % (auto) 69.6 % (37.0-80.0); Nucleated Red Blood Cells % 0.1 %; Platelet Count (auto) 239 10^3/uL (140-450); Red Blood Cells 3.29 10^6/uL (4.0-5.20); Red Cell Distribution Width 16.3 % (11.8-14.3); White Blood Cell 3.1 10^3/uL (4.4-10.8)
[2020-07-09 05:20] LABS: INR 0.92 (0.9-1.15); Partial Thromboplastin Time 25.8 sec (23.0-31.2)
[2020-07-09 05:23] LABS: Chloride 104 mmol/L (98-107); Potassium 4.6 mmol/L (3.5-5.1); Sodium 136 mmol/L (136-145)
[2020-07-09 05:32] LABS: Alanine Aminotransferase 23 U/L (13-56); Albumin 2.1 g/dL (3.4-5.0); Alkaline Phosphatase 90 U/L (45-117); Anion Gap 3 (5-15); Aspartate Aminotransferase 19 U/L (15-37); BUN/Creatinine Ratio 11.5; Bilirubin, Total 0.3 mg/dL (0.2-1.0); Blood Urea Nitrogen 7 mg/dL (7-18); Calcium 9.1 mg/dL (8.5-10.1); Carbon Dioxide 29 mmol/L (21-32); GFR African American 119 mL/min; GFR Non-African American 98 mL/min; Glucose 79 mg/dL (74-106); Total Protein 6.4 g/dL (6.4-8.2)
[2020-07-09 07:51] VITALS: BP 130/47
== END 2020-07-09 13:37 | disposition home or self-care (01) ==
LOC: EDBD 23:30 → ER 23:30
DX: R55 Syncope and collapse (principal); R00.1 Bradycardia, unspecified; Z90.49 Acquired absence of other specified parts of digestive tract; Z79.899 Other long term (current) drug therapy; Z20.828 Contact with and (suspected) exposure to other viral communicable diseases
CPT/HCPCS: 36415; 70450; 80053; 84484; 85025; 85610; 85730; 87426; 93005

== ENCOUNTER 2020-07-16 12:15 | Inpatient (IN) | payer OTHER ==
[~2020-07-16] VITALS: Ht 147.3 cm; Wt 44.0 kg
[2020-07-16] MEDS ORDERED: SODIUM CHLORIDE 0.9% 1,000 ML IVB ONE (14:30)
[2020-07-16] MEDS ORDERED: ONDANSETRON HCL 4 MG/2 ML VIAL IV ONE (14:30)
[2020-07-16 20:10] LABS: Basophils # (auto) 0 10 ^3/uL (0-0.2); Basophils % (auto) 0.9 % (0.0-2.0); Eosinophils # (auto) 0 10 ^3/uL (0-0.8); Hematocrit 30.8 % (36.0-46.0); Hemoglobin 10.1 g/dL (12.2-16.2); Lymphocytes # (auto) 0.6 10 ^3/uL (0.4-5.4); Lymphocytes % (auto) 16.4 % (10.0-50.0); Mean Corpuscular Hemoglobin 29.8 pg (28.0-32.0); Mean Corpuscular Hgb Conc. 32.7 g/dL (32.0-36.0); Mean Corpuscular Volume 91.2 fL (80.0-100.0); Monocytes # (auto) 0.2 10 ^3/uL (0-1.3); Monocytes % (auto) 5.5 % (0.0-12.0); Neutrophils # (auto) 2.6 10 ^3/uL (1.6-8.6); Neutrophils % (auto) 77.2 % (37.0-80.0); Nucleated Red Blood Cells % 0.1 %; Platelet Count (auto) 277 10^3/uL (140-450); Red Blood Cells 3.38 10^6/uL (4.0-5.20); Red Cell Distribution Width 16.5 % (11.8-14.3); White Blood Cell 3.4 10^3/uL (4.4-10.8)
[2020-07-16 20:31] LABS: INR 0.95 (0.9-1.15)
[2020-07-16 20:40] LABS: Albumin 2.4 g/dL (3.4-5.0); BUN/Creatinine Ratio 20.5; Bilirubin, Total 0.4 mg/dL (0.2-1.0); Calcium 8.6 mg/dL (8.5-10.1); Magnesium 2.1 mg/dL (1.6-2.6); Total Protein 6.6 g/dL (6.4-8.2)
[2020-07-16] MEDS ORDERED: SODIUM CHLORIDE 0.9% 1,000 ML IV SCH (20:45)
[2020-07-16] MEDS ORDERED: ONDANSETRON HCL 4 MG/2 ML VIAL IV PRN (20:45)
[2020-07-16] MEDS ORDERED: ACETAMINOPHEN 325 MG TAB PO PRN (20:45)
[2020-07-16] MEDS ORDERED: DOCUSATE SOD 100 MG CAP PO PRN (20:45)
[2020-07-17] MEDS: cefTRIAXone 1GM/50ML D5W 50 ML IV SCH ×2 (06:09→20:50)
[2020-07-17 06:31] LABS: Basophils # (auto) 0 10 ^3/uL (0-0.2); Basophils % (auto) 0.9 % (0.0-2.0); Eosinophils # (auto) 0 10 ^3/uL (0-0.8); Eosinophils % (auto) 0.4 % (0.0-7.0); Hematocrit 37.6 % (36.0-46.0); Hemoglobin 12.3 g/dL (12.2-16.2); Lymphocytes % (auto) 25.6 % (10.0-50.0); Mean Corpuscular Hemoglobin 29.8 pg (28.0-32.0); Mean Corpuscular Hgb Conc. 32.8 g/dL (32.0-36.0); Mean Corpuscular Volume 90.9 fL (80.0-100.0); Monocytes # (auto) 0.4 10 ^3/uL (0-1.3); Neutrophils # (auto) 2.4 10 ^3/uL (1.6-8.6); Neutrophils % (auto) 62.1 % (37.0-80.0); Nucleated Red Blood Cells % 0.1 %; Platelet Count (auto) 329 10^3/uL (140-450); Red Blood Cells 4.14 10^6/uL (4.0-5.20); Red Cell Distribution Width 16.7 % (11.8-14.3); White Blood Cell 3.8 10^3/uL (4.4-10.8)
[2020-07-17 07:07] LABS: Calcium 9.8 mg/dL (8.5-10.1); Potassium 4.4 mmol/L (3.5-5.1)
[2020-07-17 07:15] LABS: BUN/Creatinine Ratio 19.3
[2020-07-17] MEDS: D5W/SOD CHLO 0.9% 1,000 ML IV SCH ×2 (11:36→18:33)
[2020-07-17] MEDS: Ensure HIGH Protein Chocolate 8oz Bottle PO SCH ×2 (12:02→18:22)
[2020-07-18] MEDS: D5W/SOD CHLO 0.9% 1,000 ML IV SCH ×3 (02:30→18:59)
[2020-07-18 08:13] LABS: Basophils # (auto) 0 10 ^3/uL (0-0.2); Basophils % (auto) 0.9 % (0.0-2.0); Eosinophils # (auto) 0 10 ^3/uL (0-0.8); Eosinophils % (auto) 0.5 % (0.0-7.0); Hematocrit 34.8 % (36.0-46.0); Hemoglobin 11.5 g/dL (12.2-16.2); Lymphocytes # (auto) 0.9 10 ^3/uL (0.4-5.4); Lymphocytes % (auto) 26.8 % (10.0-50.0); Mean Corpuscular Hemoglobin 29.6 pg (28.0-32.0); Mean Corpuscular Hgb Conc. 32.9 g/dL (32.0-36.0); Monocytes # (auto) 0.3 10 ^3/uL (0-1.3); Monocytes % (auto) 9.2 % (0.0-12.0); Neutrophils % (auto) 62.6 % (37.0-80.0); Nucleated Red Blood Cells % 0.1 %; Platelet Count (auto) 274 10^3/uL (140-450); Red Blood Cells 3.87 10^6/uL (4.0-5.20); Red Cell Distribution Width 16.9 % (11.8-14.3); White Blood Cell 3.2 10^3/uL (4.4-10.8)
[2020-07-18 08:16] LABS: Calcium 9.2 mg/dL (8.5-10.1); Potassium 3.4 mmol/L (3.5-5.1)
[2020-07-18 08:19] LABS: BUN/Creatinine Ratio 22.4
[2020-07-18] MEDS ORDERED: POTASSIUM CHL 20 Meq TABLET PO ONE (11:00)
[2020-07-18] MEDS ORDERED: FUROSEMIDE 20 MG/2 ML VIAL IV ONE (11:15)
[2020-07-18] MEDS: Ensure HIGH Protein Chocolate 8oz Bottle PO SCH ×3 (11:16→18:30)
[2020-07-18] MEDS: amLODIPine BESYLATE 5 MG TAB PO SCH (11:58)
[2020-07-18 12:59] LABS: Urine Bacteria FEW /hpf (None Seen); Urine Blood Negative /uL (Negative); Urine Specific Gravity 1.011 (1.001-1.035); Urine WBC 40 /hpf (0 - 5)
[2020-07-18 22:00] VITALS: BP 97/45
[2020-07-18] MEDS: cefTRIAXone 1GM/50ML D5W 50 ML IV SCH (22:16)
[2020-07-19] MEDS: D5W/SOD CHLO 0.9% 1,000 ML IV SCH ×2 (02:30→10:07)
[2020-07-19] MEDS: Ensure HIGH Protein Chocolate 8oz Bottle PO SCH ×2 (08:51→12:00)
[2020-07-19] MEDS ORDERED: FUROSEMIDE 20 MG/2 ML VIAL IV SCH (10:00)
[2020-07-19] MEDS: amLODIPine BESYLATE 5 MG TAB PO SCH (10:07)
== END 2020-07-19 17:20 | disposition hospice, home (50) | DRG 871 ==
LOC: EDBD 12:15 → ER 12:15 → TELE 12:16 → CENTRAL 07-18 23:51
PROVIDERS: ADMIT Hospitalist; ATTEND Family Medicine
DX: A41.9 Sepsis, unspecified organism (principal); G92 Toxic encephalopathy; I50.43 Acute on chronic combined systolic (congestive) and diastolic (congestive) heart failure; N39.0 Urinary tract infection, site not specified; E44.0 Moderate protein-calorie malnutrition; E87.1 Hypo-osmolality and hyponatremia; R00.1 Bradycardia, unspecified; R62.7 Adult failure to thrive; G30.9 Alzheimer's disease, unspecified; F02.80 Dementia in other diseases classified elsewhere, unspecified severity, without behavioral disturbance, psychotic disturbance, mood disturbance, and anxiety; E86.0 Dehydration; E88.09 Other disorders of plasma-protein metabolism, not elsewhere classified; E87.6 Hypokalemia; E03.9 Hypothyroidism, unspecified; I11.0 Hypertensive heart disease with heart failure; I48.91 Unspecified atrial fibrillation; Z51.5 Encounter for palliative care; Z66 Do not resuscitate; Z20.822 Contact with and (suspected) exposure to COVID-19; Z68.20 Body mass index [BMI] 20.0-20.9, adult; Z87.11 Personal history of peptic ulcer disease; Z90.49 Acquired absence of other specified parts of digestive tract
CPT/HCPCS: 36415; 71045; 80048; 80053; 81001; 82533; 83735; 83880; 84439; 84443; 85025; 85610; 85730; 87086; 87088; 87186; 93005; G0378; J0696; J2405; J7042